=== PATIENT | female | born 1975 ===

== ENCOUNTER 2018-04-03 01:10 | Emergency (ER) | payer SELFPAY ==
--- NOTE | 2018-04-03 01:51 | ED PDOC ---
HPI: Chest Pain Time Seen by Provider: 04/03/18 01:33 Chief Complaint (Nursing): Chest Pain Chief Complaint (Provider): chest pain History Per: Patient History/Exam Limitations: no limitations Onset/Duration Of Symptoms: Hrs (1.5) Current Symptoms Are (Timing): Still Present Quality: Pressure Additional Complaint(s): 42 y/o male (transitioning to female) presents for evaluation of midsternal chest pain x 1.5 hours. Patient states he was trying to fall asleep when pain started; which is worsened by deep breaths. Denies fever, nausea/vomiting, cough, congestion, palpitations, leg pain/swelling, recent travel. +estrogen use. Past Medical History Reviewed: Historical Data, Nursing Documentation, Vital Signs Vital Signs: Last Vital Signs Temp 98.2 F 04/03/18 01:29 Pulse 92 H 04/03/18 01:29 Resp 18 04/03/18 01:29 BP 95/61 L 04/03/18 01:29 Pulse Ox 98 04/03/18 02:11 - Surgical History Surgical History: No Surg Hx - Family History Family History: States: Unknown Family Hx - Social History Current smoker - smoking cessation education provided: No Alcohol: None Drugs: Cannabis - Home Medications Home Medications: Ambulatory Orders Medication Instructions Recorded Amoxicillin 500 mg PO TID #21 tab 03/13/15 Lidocaine 2% Viscous 15 ml MM AC #1 bottle 03/13/15 Cyclobenzaprine [Cyclobenzaprine 10 mg PO TID #20 tab 05/02/16 HCl] Oxycodone HCl/Acetaminophen 1 tab PO Q4 #12 tab 05/02/16 [Percocet 325 mg-5 mg] Ciprofloxacin/Dexamethasone 1 - 2 drop OD BID #1 bottle 12/20/16 [Ciprodex Otic] - Allergies Allergies/Adverse Reactions: Allergies Allergy/AdvReac Type Severity Reaction Status Date / Time No Known Allergies Allergy Verified 04/03/18 01:28 Review of Systems ROS Statement: Except As Marked, All Systems Reviewed And Found Negative Cardiovascular: Positive for: Chest Pain Respiratory: Positive for: Shortness of Breath Physical Exam - Reviewed Nursing Documentation Reviewed: Yes Vital Signs Reviewed: Yes - Physical Exam Appears: Positive for: Well, Non-toxic, No Acute Distress Head Exam: Positive for: ATRAUMATIC, NORMAL INSPECTION, NORMOCEPHALIC Skin: Positive for: Normal Color Eye Exam: Positive for: Normal appearance ENT: Positive for: Normal ENT Inspection Cardiovascular/Chest: Positive for: Regular Rate, Rhythm Respiratory: Positive for: Normal Breath Sounds Gastrointestinal/Abdominal: Positive for: Normal Exam Back: Positive for: Normal Inspection Extremity: Positive for: Normal ROM Neurologic/Psych: Positive for: Alert, Oriented - Laboratory Results Result Diagrams: 04/03/18 02:00 04/03/18 02:00 - ECG ECG: Positive for: Viewed By Me (reviewed by ED attending) ECG Rhythm: Positive for: Sinus Rhythm O2 Sat by Pulse Oximetry: 100 Pulse Ox Interpretation: Normal - Radiology X-Ray: Viewed By Me X-Ray Interpretation: No Acute Disease - Progress ED Course And Treament: labs, ekg, chest xray, IV toradol On re-eval, patient states pain improved Patient educated on findings, discharged with instructions to follow up PMD 2-3 days. Advised NSAIDs Return precautions given. Disposition - Clinical Impression Clinical Impression: Atypical chest pain - Patient ED Disposition Is Patient to be Admitted: No Counseled Patient/Family Regarding: Studies Performed, Diagnosis, Need For Followup - Disposition Disposition: Routine/Home Disposition Time: 03:06 Condition: IMPROVED Instructions: Chest Pain Forms: [employer] (Spanish)
[2018-04-03 02:15] LABS: BASO # 0.1 K/uL (0.0-0.2); BASO % 0.5 % (0.0-2.0); EOS # 0.4 K/uL (0.0-0.7); EOS % 3.7 % (0.0-4.0); LYMPH % 20.4 % (20.0-40.0); MEAN CELL VOLUME 91.2 fl (81.0-99.0); MEAN CORPUSCULAR HEMOGLOBIN 31.5 pg (27.0-31.0); MEAN CORPUSCULAR HGB CONC 34.5 g/dL (33.0-37.0); MEAN PLATELET VOLUME 8.4 fl (7.2-11.7); MONO # 0.8 K/uL (0.0-0.8); MONO % 8.3 % (0.0-10.0); NEUT # 6.5 K/uL (1.8-7.0); NEUT % 67.1 % (50.0-75.0); NRBC % 0.1 % (0.0-0.0); RBC 3.82 Mil/uL (3.80-5.20); RED CELL DISTRIBUTION WIDTH 12.7 % (11.5-14.5); WHITE BLOOD COUNT 9.7 K/uL (4.8-10.8)
[2018-04-03 02:20] LABS: ALB/GLOB RATIO 1.2 (1.0-2.1); ALBUMIN 3.4 g/dL (3.5-5.0); ALT/SGPT 21 U/L (9-52); AST/SGOT 21 U/L (14-36); BLOOD UREA NITROGEN 12 mg/dl (7-17); CALCIUM 8.2 mg/dL (8.4-10.2); GFR AFRICAN-AMERICAN > 60; GFR NON-AFRICAN AMERICAN > 60
[2018-04-03 03:02] VITALS: O2SAT 100
[2018-04-03 03:06] VITALS: BP 95/58; PULSE 81; RESP 17; TEMP 98.1
== END 2018-04-03 03:31 | disposition home or self-care (01) ==
LOC: EDSEX 01:10 → H.ER 01:10
DX: R07.9 Chest pain, unspecified (principal)
CPT/HCPCS: 71046; 80053; 84484; 85025; 85378; 99284; J1885

== ENCOUNTER 2018-04-13 22:30 | Emergency (ER) | payer OTHER ==
[2018-04-13 22:39] VITALS: RESP 16
[2018-04-14] MEDS ORDERED: Famotidine 20mg/50ml Premix IVPB STA (00:43)
[2018-04-14] MEDS ORDERED: Sodium Chloride 0.9% 1,000 ML IV STA (00:43)
[2018-04-14] MEDS ORDERED: Famotidine 20mg/50ml 20 MG/50 ML BAG IVPB ONE (00:52)
[2018-04-14 01:16] LABS: BASO # 0.1 K/uL (0.0-0.2); BASO % 0.5 % (0.0-2.0); EOS # 0.2 K/uL (0.0-0.7); EOS % 1.6 % (0.0-4.0); HEMOGLOBIN 12.9 g/dL (12.0-16.0); LYMPH # 1.1 K/uL (1.0-4.3); LYMPH % 7.4 % (20.0-40.0); MEAN CELL VOLUME 91.8 fl (81.0-99.0); MEAN CORPUSCULAR HEMOGLOBIN 31.6 pg (27.0-31.0); MEAN CORPUSCULAR HGB CONC 34.4 g/dL (33.0-37.0); MEAN PLATELET VOLUME 8.7 fl (7.2-11.7); MONO # 1.1 K/uL (0.0-0.8); MONO % 7.3 % (0.0-10.0); NEUT # 12.5 K/uL (1.8-7.0); NEUT % 83.2 % (50.0-75.0); PLATELET COUNT 255 K/uL (130-400); WHITE BLOOD COUNT 15.1 K/uL (4.8-10.8)
[2018-04-14 01:30] LABS: ALB/GLOB RATIO 1.3 (1.0-2.1); ALBUMIN 4.1 g/dL (3.5-5.0); ALT/SGPT 27 U/L (9-52); AST/SGOT 23 U/L (14-36); BLOOD UREA NITROGEN 8 mg/dl (7-17); CALCIUM 8.9 mg/dL (8.4-10.2); GFR AFRICAN-AMERICAN > 60; GFR NON-AFRICAN AMERICAN > 60; LIPASE 53 U/L (23-300)
--- NOTE | 2018-04-14 01:31 | ED PDOC ---
History of Present Illness History of Present Illness: 42 year old male transitioning to female presents to the emergency department complaining of chills, cough and generalized weakness associated with decreased appetite, nasal congestion, slight difficulty breathing, epigastric pain, and a few episodes of non bloody vomiting and non bloody diarrhea onset yesterday. Denies chest pain. Patient also notes that due to her weakness, she passed out in her home yesterday, but denies head injury. PMD: [facility] HPI: Influenza Time Seen by Provider: 04/14/18 00:21 Chief Complaint: GI Problem Chief Complaint (Provider): GI Problem History Per: Patient Exam Limitations: no limitations Onset/Duration Of Symptoms: Days (x2) Past Medical History Reviewed: Historical Data, Nursing Documentation, Vital Signs Vital Signs: Last Vital Signs Temp 98.6 F 04/13/18 22:36 Pulse 79 04/13/18 22:36 Resp 16 04/13/18 22:36 BP 130/79 04/13/18 22:36 Pulse Ox 95 04/13/18 22:36 - Medical History PMH: Atrial Fibrillation - Surgical History Surgical History: No Surg Hx - Family History Family History: States: Unknown Family Hx - Social History Current smoker - smoking cessation education provided: No Alcohol: None Drugs: Denies - Home Medications Home Medications: Ambulatory Orders Medication Instructions Recorded Amoxicillin 500 mg PO TID #21 tab 03/13/15 Lidocaine 2% Viscous 15 ml MM AC #1 bottle 03/13/15 Cyclobenzaprine [Cyclobenzaprine 10 mg PO TID #20 tab 05/02/16 HCl] Oxycodone HCl/Acetaminophen 1 tab PO Q4 #12 tab 05/02/16 [Percocet 325 mg-5 mg] Ciprofloxacin/Dexamethasone 1 - 2 drop OD BID #1 bottle 12/20/16 [Ciprodex Otic] Ondansetron ODT [Zofran ODT] 4 mg PO Q8 PRN #12 odt 04/14/18 - Allergies Allergies/Adverse Reactions: Allergies Allergy/AdvReac Type Severity Reaction Status Date / Time No Known Allergies Allergy Verified 04/03/18 01:28 Review of Systems ROS Statement: Except As Marked, All Systems Reviewed And Found Negative Constitutional: Positive for: Chills, Weakness (generalized) ENT: Positive for: Nose Congestion Cardiovascular: Negative for: Chest Pain Respiratory: Positive for: Cough, Other (slight difficulty breathing) Gastrointestinal: Positive for: Vomiting (non bloody), Abdominal Pain ( epigastric), Diarrhea (non bloody), Other (decreased appetite) Neurological: Positive for: Other (loss of consciousness, but no head injury) Physical Exam - Reviewed Nursing Documentation Reviewed: Yes Vital Signs Reviewed: Yes - Physical Exam Appears: Positive for: Non-toxic, No Acute Distress Head Exam: Positive for: ATRAUMATIC, NORMOCEPHALIC Skin: Positive for: Normal Color, Warm, Dry Eye Exam: Positive for: Normal appearance ENT: Positive for: Nasal Congestion. Negative for: Pharyngeal Erythema, Tonsillar Exudate, Tonsillar Swelling Neck: Positive for: Normal, Painless ROM, Supple Cardiovascular/Chest: Positive for: Regular Rate, Rhythm. Negative for: Murmur Respiratory: Positive for: Normal Breath Sounds. Negative for: Accessory Muscle Use, Respiratory Distress Gastrointestinal/Abdominal: Positive for: Normal Exam, Soft, Tenderness ( epigastric) Back: Positive for: Normal Inspection. Negative for: L CVA Tenderness, R CVA Tenderness, Vertebral Tenderness Extremity: Positive for: Normal ROM Neurologic/Psych: Positive for: Alert, Oriented (x3). Negative for: Motor/ Sensory Deficits Medical Decision Making Medical Decision Making: Initial Impression: flu like symptoms, abdominal pain with vomiting Ddx: acute gastroenteritis, influenza, pneumonia, pancreatitis, dehydration, and vasovagal syncope Time: 00:42 Initial Plan: --CMP --Lipase --ED urine dipstick --CBC with differential --Chest XR --Sodium chloride 0.9% 1000ml IV --Pepcid 20mg IVPB --Zofran 4mg PO --Throat culture --Influenza A B --Rapid strep Scribe Attestation: Documented by Nilda Haddad, acting as a scribe for Jeo Burrell MD Provider Scribe Attestation: All medical entries made by the Scribe were at my direction and personally dictated by me. I have reviewed the chart and agree that the record accurately reflects my personal performance of the history, physical exam, medical decision making, and the department course for this patient. I have also personally directed, reviewed, and agree with the discharge instructions and disposition. - Laboratory Results Result Diagrams: 04/14/18 01:04 04/14/18 01:04 - ECG O2 Sat by Pulse Oximetry: 95 (RA) Pulse Ox Interpretation: Normal - Progress Re-evaluation Time: 03:38 Condition: Re-examined, Improved Disposition - Clinical Impression Clinical Impression: Flu-like symptoms, Vomiting and diarrhea, Abdominal pain - Patient ED Disposition Is Patient to be Admitted: No Doctor Will See Patient In The: Office Counseled Patient/Family Regarding: Studies Performed, Diagnosis, Need For Followup - Disposition Referrals: [facility] [Outside] Disposition: Routine/Home Disposition Time: 03:39 Condition: GOOD Additional Instructions: Return for worsening. Follow up with your PCP in 2-3 days. Prescriptions: Ondansetron ODT [Zofran ODT] 4 mg PO Q8 PRN #12 odt PRN Reason: Nausea/Vomiting Instructions: Viral Gastroenteritis, Adult (DC), Viral Upper Respiratory Infection, Adult (DC)
[2018-04-14 02:14] LABS: LYMPHOCYTE 9 % (20-50); MONOCYTE 5 % (0-10); NEUTROPHIL 86 % (42-75); PLATELET ESTIMATE NORMAL (NORMAL); TOTAL CELLS COUNTED 100
[2018-04-14 06:12] VITALS: BP 110/61; PULSE 83; TEMP 97.9; O2SAT 98
--- NOTE | 2018-04-14 09:59 | RAD ---
HISTORY: cough cogestion dyspnea COMPARISON: Chest radiographs 04/03/2018. TECHNIQUE: Chest PA and lateral FINDINGS: LUNGS: No active pulmonary disease. PLEURA: No significant pleural effusion identified. No pneumothorax apparent. CARDIOVASCULAR: Normal. OSSEOUS STRUCTURES: No significant abnormalities. VISUALIZED UPPER ABDOMEN: Normal. OTHER FINDINGS: None. IMPRESSION: No interval acute cardiopulmonary disease appreciated.
== END 2018-04-14 06:11 | disposition home or self-care (01) ==
LOC: EDSEX → H.ER 22:30
DX: J11.1 Influenza due to unidentified influenza virus with other respiratory manifestations (principal); R11.10 Vomiting, unspecified; R19.7 Diarrhea, unspecified; R10.9 Unspecified abdominal pain
CPT/HCPCS: 71046; 80053; 83690; 85025; 87070; 87430; 87804; 96361; 96374; 99283; J7030

== ENCOUNTER 2018-05-19 07:29 | Emergency (ER) | payer MEDICAID, OTHER ==
[2018-05-19 07:38] VITALS: BMI 26.5
[2018-05-19] MEDS ORDERED: Sodium Chloride 0.9% 1,000 ML IV STA (07:52)
--- NOTE | 2018-05-19 08:01 | ED PDOC ---
HPI: Back Time Seen by Provider: 05/19/18 07:36 Chief Complaint (Nursing): Back Pain Chief Complaint (Provider): Back Pain History Per: Patient History/Exam Limitations: no limitations Onset/Duration Of Symptoms: Hrs Current Symptoms Are (Timing): Still Present Quality Of Discomfort: "Pain" Additional Complaint(s): 42 y/o female with no PMHx presents to the ED complaining of constant right back pain associated with nausea, onset this morning. Patient states she was asleep last night when pain woke her up. Patient reports she has had similar pain before but it had resolved on its own. Patient states that they are currently transitioning from male to female and is on estrogen and spironolactone therapy. Denies vomiting, fever, constipation, diarrhea, dysuria , and hematuria. PMD: None Provided Past Medical History Reviewed: Historical Data, Nursing Documentation, Vital Signs Vital Signs: Last Vital Signs Temp 97.4 F L 05/19/18 07:37 Pulse 76 05/19/18 07:37 Resp BP 115/74 05/19/18 07:37 Pulse Ox 98 05/19/18 07:37 - Medical History PMH: Atrial Fibrillation - Surgical History Surgical History: No Surg Hx - Family History Family History: States: Unknown Family Hx - Home Medications Home Medications: Ambulatory Orders Medication Instructions Recorded Amoxicillin 500 mg PO TID #21 tab 03/13/15 Lidocaine 2% Viscous 15 ml MM AC #1 bottle 03/13/15 Cyclobenzaprine [Cyclobenzaprine 10 mg PO TID #20 tab 05/02/16 HCl] Oxycodone HCl/Acetaminophen 1 tab PO Q4 #12 tab 05/02/16 [Percocet 325 mg-5 mg] Ciprofloxacin/Dexamethasone 1 - 2 drop OD BID #1 bottle 12/20/16 [Ciprodex Otic] Ondansetron ODT [Zofran ODT] 4 mg PO Q8 PRN #12 odt 04/14/18 Naproxen [Naprosyn] 500 mg PO BID PRN #15 tablet 05/19/18 Ondansetron [Zofran Odt] 4 mg PO Q8H PRN #15 odt 05/19/18 - Allergies Allergies/Adverse Reactions: Allergies Allergy/AdvReac Type Severity Reaction Status Date / Time No Known Allergies Allergy Verified 04/03/18 01:28 Review of Systems ROS Statement: Except As Marked, All Systems Reviewed And Found Negative Constitutional: Negative for: Fever Gastrointestinal: Positive for: Nausea. Negative for: Vomiting, Diarrhea, Constipation Musculoskeletal: Positive for: Back Pain (right) Physical Exam - Reviewed Nursing Documentation Reviewed: Yes Vital Signs Reviewed: Yes - Physical Exam Appears: Positive for: No Acute Distress Head Exam: Positive for: ATRAUMATIC, NORMOCEPHALIC Skin: Positive for: Normal Color, Warm, Dry Eye Exam: Positive for: Normal appearance, EOMI, PERRL Neck: Positive for: Normal, Painless ROM Cardiovascular/Chest: Positive for: Regular Rate, Rhythm. Negative for: Murmur Respiratory: Positive for: Normal Breath Sounds. Negative for: Respiratory Distress Gastrointestinal/Abdominal: Positive for: Normal Exam, Tenderness (mild right upper quadrant tenderness). Negative for: Guarding, Rebound Back: Positive for: Normal Inspection, R CVA Tenderness. Negative for: L CVA Tenderness, Vertebral Tenderness Extremity: Positive for: Normal ROM. Negative for: Deformity Neurologic/Psych: Positive for: Alert, Oriented (x3). Negative for: Motor/ Sensory Deficits - Laboratory Results Result Diagrams: 05/19/18 08:43 05/19/18 08:43 - ECG O2 Sat by Pulse Oximetry: 98 (RA) Pulse Ox Interpretation: Normal Medical Decision Making Medical Decision Making: Time: 075 Impression: Flank Pain Plan: -- EKG -- CMP -- ED Urine Dipstick -- CBC with differentials -- PTT -- Prothrombin Time -- CXR Two Views -- Morphine 2 mg IV -- Sodium Chloride IV 1000 mls/hr -- Zofran Inj 4 mg PO -- Urinalysis Time: 924 CXR RESULTS FINDINGS: LUNGS: No active pulmonary disease. PLEURA: No significant pleural effusion identified. No pneumothorax apparent. CARDIOVASCULAR: Normal. OSSEOUS STRUCTURES: No significant abnormalities. VISUALIZED UPPER ABDOMEN: Normal. OTHER FINDINGS: None. IMPRESSION: No active disease. Time: 1021 CT ABD/PELVIS RESULTS FINDINGS: LOWER THORAX: Lung bases clear. Heart size normal. Small hiatal hernia. Bilateral changes of gynecomastia. LIVER: Liver is mildly enlarged measuring nearly 20 cm in CC dimension. Small approximately 10.5 mm elliptical shaped fluid collects density lesion in the posterior aspect right lobe liver consistent with a small hepatic cyst. There is another small 2 mm focus low attenuation inferior aspect right lobe liver that is too small to characterize though this may also represent a cyst. Follow- up of CT scan at interval could be performed to assess stability No other hepatic abnormalities are identified. GALLBLADDER AND BILE DUCTS: Cholelithiasis. . PANCREAS: Pancreas is unremarkable without mass collection or calcification. SPLEEN: Unremarkable. No splenomegaly. ADRENALS: Unremarkable. KIDNEYS AND URETERS: Kidneys demonstrate relatively symmetric size. No evidence of nephrolithiasis or hydronephrosis. BLADDER: Urinary bladder incompletely distended which presumably accounts for thick- walled appearance. Muscular hypertrophy may contribute. Correlation with urinalysis recommended to exclude cystitis. REPRODUCTIVE: Unremarkable. APPENDIX: Normal appendix best seen on coronal sequence 42- 57. BOWEL: Unremarkable. No obstruction. There is a moderate amount of stool seen within the large bowel consistent with mild fecal retention No gross mural thickening. PERITONEUM: Unremarkable. No fluid collection. No free air. Small fat containing umbilical hernia. Small bilateral fat containing inguinal hernias. LYMPH NODES: There are scattered small mesenteric lymph nodes which are nonspecific ; rule out mesenteric adenitis. In the VASCULATURE: Unremarkable. No aortic aneurysm. BONES: No fracture or destructive lesion. OTHER FINDINGS: None. IMPRESSION: Cholelithiasis. There are scattered small mesenteric lymph nodes which are nonspecific ; rule out mesenteric adenitis. Findings suggest on fecal retention/ constipation. No evidence of nephrolithiasis. No evidence of acute appendicitis. Mild hepatomegaly. Small cyst posterior superior aspect right lobe liver. . Questionable additional tiny 2 mm cyst inferior aspect right lobe liver Scribe Attestation: Documented by Mira Palacios acting as a scribe for Dr. Julia Tariq MD. Provider Scribe Attestation: All medical record entries made by the Scribe were at my direction and personally dictated by me. I have reviewed the chart and agree that the record accurately reflects my personal performance of the history, physical exam, medical decision making, and the department course for this patient. I have also personally directed, reviewed, and agree with the discharge instructions and disposition. Disposition - Clinical Impression Clinical Impression: Cholelithiasis, Mesenteric adenitis - Disposition Referrals: [facility] [Outside] Disposition: Routine/Home Disposition Time: 11:30 Condition: STABLE Prescriptions: Naproxen [Naprosyn] 500 mg PO BID PRN #15 tablet PRN Reason: Pain, Moderate (4-7) Ondansetron [Zofran Odt] 4 mg PO Q8H PRN #15 odt PRN Reason: Nausea/Vomiting Instructions: Gallstones, Mesenteric Lymphadenitis (DC) Forms: [facility] (Guyanese), [facility] ED School/Work Excuse
[2018-05-19 08:47] LABS: BASO # 0.1 K/uL (0.0-0.2); BASO % 0.5 % (0.0-2.0); EOS # 0.2 K/uL (0.0-0.7); EOS % 1.8 % (0.0-4.0); LYMPH # 1.2 K/uL (1.0-4.3); LYMPH % 9.7 % (20.0-40.0); MEAN CELL VOLUME 91.3 fl (80.0-94.0); MEAN CORPUSCULAR HEMOGLOBIN 31.1 pg (27.0-31.0); MEAN CORPUSCULAR HGB CONC 34.1 g/dL (33.0-37.0); MEAN PLATELET VOLUME 8.9 fl (7.2-11.7); MONO # 0.8 K/uL (0.0-0.8); MONO % 6.2 % (0.0-10.0); NEUT # 10.5 K/uL (1.8-7.0); NEUT % 81.8 % (50.0-75.0); PLATELET COUNT 251 K/uL (130-400); RBC 4.18 Mil/uL (4.40-5.90); RED CELL DISTRIBUTION WIDTH 12.5 % (11.5-14.5); WHITE BLOOD COUNT 12.8 K/uL (4.8-10.8)
[2018-05-19 08:58] LABS: PARTIAL THROMBOPLASTIN TIME 31.9 Seconds (25.6-37.1); PROTHROMBIN TIME 11.6 Seconds (9.8-13.1)
[2018-05-19 09:00] LABS: ALB/GLOB RATIO 1.4 (1.0-2.1); ALBUMIN 4.2 g/dL (3.5-5.0); ALT/SGPT 22 U/L (21-72); AST/SGOT 19 U/L (17-59); BLOOD UREA NITROGEN 13 mg/dl (9-20); CALCIUM 8.9 mg/dL (8.4-10.2); GFR NON-AFRICAN AMERICAN > 60
[2018-05-19 09:29] LABS: SQUAMOUS EPITHIAL 3 /hpf (0-5); URINE BILIRUBIN NEGATIVE (NEGATIVE); URINE BLOOD SMALL (NEGATIVE); URINE CLARITY SLIGHTY-CLOUDY (Clear); URINE COLOR YELLOW (YELLOW); URINE GLUCOSE (UA) NEG (Normal); URINE LEUKOCYTE ESTERASE NEG Leu/uL (Negative); URINE PROTEIN NEGATIVE (NEGATIVE); URINE UROBILINOGEN 0.2-1.0 mg/dL (0.2-1.0)
[2018-05-19 09:35] LABS: BASOPHIL 1 % (0-2); EOSINOPHIL 1 % (0-7); LYMPHOCYTE 14 % (20-50); MONOCYTE 8 % (0-10); NEUTROPHIL 76 % (42-75); PLATELET ESTIMATE NORMAL (NORMAL); TOTAL CELLS COUNTED 100
[2018-05-19 09:36] LABS: ANISOCYTOSIS SLIGHT; LARGE PLATELETS PRESENT; OVALOCYTES MODERATE
--- NOTE | 2018-05-19 10:04 | RAD ---
Date of service: 05/19/2018 HISTORY: R flank pain COMPARISON: Comparison chest 04/14/2018 TECHNIQUE: Chest PA and lateral FINDINGS: LUNGS: No active pulmonary disease. PLEURA: No significant pleural effusion identified. No pneumothorax apparent. CARDIOVASCULAR: Normal. OSSEOUS STRUCTURES: No significant abnormalities. VISUALIZED UPPER ABDOMEN: Normal. OTHER FINDINGS: None. IMPRESSION: No active disease.
--- NOTE | 2018-05-19 10:23 | CT ---
Date of service: 05/19/2018 PROCEDURE: CT abdomen pelvis HISTORY: R flank pain COMPARISON: None. TECHNIQUE: Contiguous axial images of the abdomen and pelvis. . Given. Coronal and Sagittal reformats generated. This CT exam was performed using one or more of the following dose reduction techniques: Automated exposure control, adjustment of the mA and/or kV according to patient size, and/or use of iterative reconstruction technique. Radiation dose: Total exam DLP = 815.29 mGy-cm. FINDINGS: LOWER THORAX: Lung bases clear. Heart size normal. Small hiatal hernia. Bilateral changes of gynecomastia. LIVER: Liver is mildly enlarged measuring nearly 20 cm in CC dimension. Small approximately 10.5 mm elliptical shaped fluid collects density lesion in the posterior aspect right lobe liver consistent with a small hepatic cyst. There is another small 2 mm focus low attenuation inferior aspect right lobe liver that is too small to characterize though this may also represent a cyst. Follow-up of CT scan at interval could be performed to assess stability No other hepatic abnormalities are identified. GALLBLADDER AND BILE DUCTS: Cholelithiasis. . PANCREAS: Pancreas is unremarkable without mass collection or calcification. SPLEEN: Unremarkable. No splenomegaly. ADRENALS: Unremarkable. KIDNEYS AND URETERS: Kidneys demonstrate relatively symmetric size. No evidence of nephrolithiasis or hydronephrosis. BLADDER: Urinary bladder incompletely distended which presumably accounts for thick-walled appearance. Muscular hypertrophy may contribute. Correlation with urinalysis recommended to exclude cystitis. REPRODUCTIVE: Unremarkable. APPENDIX: Normal appendix best seen on coronal sequence 42- 57. BOWEL: Unremarkable. No obstruction. There is a moderate amount of stool seen within the large bowel consistent with mild fecal retention No gross mural thickening. PERITONEUM: Unremarkable. No fluid collection. No free air. Small fat containing umbilical hernia. Small bilateral fat containing inguinal hernias. LYMPH NODES: There are scattered small mesenteric lymph nodes which are nonspecific ; rule out mesenteric adenitis. In the VASCULATURE: Unremarkable. No aortic aneurysm. BONES: No fracture or destructive lesion. OTHER FINDINGS: None. IMPRESSION: Cholelithiasis. There are scattered small mesenteric lymph nodes which are nonspecific ; rule out mesenteric adenitis. Findings suggest on fecal retention/ constipation. No evidence of nephrolithiasis. No evidence of acute appendicitis. Mild hepatomegaly. Small cyst posterior superior aspect right lobe liver. . Questionable additional tiny 2 mm cyst inferior aspect right lobe liver
[2018-05-19 13:25] VITALS: BP 116/71; PULSE 74; RESP 18; TEMP 98.2
[2018-05-20 10:59] VITALS: O2SAT 98
--- NOTE | 2018-05-21 13:51 | CARD ---
APPROVED REPORT Date of service: 05/19/2018 EKG Measurement Heart [id number] <Conclusion> Normal sinus rhythm Left axis deviation Abnormal ECG
== END 2018-05-19 11:48 | disposition home or self-care (01) ==
LOC: EDSEX → H.ER 07:29 → SUPCPDRO 07:29 → H.ER 11:48
DX: K80.20 Calculus of gallbladder without cholecystitis without obstruction (principal); I88.0 Nonspecific mesenteric lymphadenitis; I48.91 Unspecified atrial fibrillation
CPT/HCPCS: 71046; 74176; 80053; 81003; 85025; 85610; 85730; 93005; 96361; 96374; 99284; J2270; J7030

== ENCOUNTER 2018-05-31 03:23 | Emergency (ER) | payer MEDICAID, OTHER ==
[2018-05-31 03:23] VITALS: BMI 26.5
[2018-05-31 03:41] VITALS: O2SAT 100
[2018-05-31] MEDS ORDERED: Sodium Chloride 0.9% 1,000 ML IV STA (03:44)
--- NOTE | 2018-05-31 03:50 | ED PDOC ---
HPI: Abdomen Time Seen by Provider: 05/31/18 03:31 Chief Complaint (Nursing): Abdominal Pain Chief Complaint (Provider): Abdominal Pain History Per: Patient History/Exam Limitations: no limitations Onset/Duration Of Symptoms: Hrs (x1) Current Symptoms Are (Timing): Still Present Location Of Pain/Discomfort: RUQ Quality Of Discomfort: Sharp Associated Symptoms: Nausea Additional Complaint(s): 42 year old male with a history of gallstones diagnosed 12 days ago presents to the ED with abdominal pain onset one hour associated nausea. Patient reports he has sharp, acute right back and abdominal pain consistent with gall stone pain he had 12 days ago. He states that the pain is an 9 out of 10 in severity. Patient is currently taking medications for gender reassignment. He denies vomiting or any other medical complaints. PMD: [facility] Past Medical History Reviewed: Historical Data, Nursing Documentation, Vital Signs Vital Signs: Last Vital Signs Temp 98.6 F 05/31/18 08:59 Pulse 65 05/31/18 08:59 Resp 16 05/31/18 08:59 BP 109/70 05/31/18 08:59 Pulse Ox 100 05/31/18 09:56 - Medical History PMH: Atrial Fibrillation Other PMH: Gall stones - Family History Family History: States: Unknown Family Hx - Social History Current smoker - smoking cessation education provided: No Ex-Smoker (has not smoked in the last 12 months): No Alcohol: None Drugs: Denies - Home Medications Home Medications: Ambulatory Orders Medication Instructions Recorded Amoxicillin 500 mg PO TID #21 tab 03/13/15 Lidocaine 2% Viscous 15 ml MM AC #1 bottle 03/13/15 Cyclobenzaprine [Cyclobenzaprine 10 mg PO TID #20 tab 05/02/16 HCl] Oxycodone HCl/Acetaminophen 1 tab PO Q4 #12 tab 05/02/16 [Percocet 325 mg-5 mg] Ciprofloxacin/Dexamethasone 1 - 2 drop OD BID #1 bottle 12/20/16 [Ciprodex Otic] Ondansetron ODT [Zofran ODT] 4 mg PO Q8 PRN #12 odt 04/14/18 Naproxen [Naprosyn] 500 mg PO BID PRN #15 tablet 05/19/18 Ondansetron [Zofran Odt] 4 mg PO Q8H PRN #15 odt 05/19/18 Naproxen [Naprosyn] 500 mg PO BID PRN #15 tablet 05/31/18 - Allergies Allergies/Adverse Reactions: Allergies Allergy/AdvReac Type Severity Reaction Status Date / Time No Known Allergies Allergy Verified 05/31/18 03:38 Review of Systems ROS Statement: Except As Marked, All Systems Reviewed And Found Negative Gastrointestinal: Positive for: Abdominal Pain Musculoskeletal: Positive for: Back Pain Physical Exam - Reviewed Nursing Documentation Reviewed: Yes Vital Signs Reviewed: Yes - Physical Exam Appears: Positive for: Uncomfortable Head Exam: Positive for: ATRAUMATIC, NORMAL INSPECTION, NORMOCEPHALIC Skin: Positive for: Normal Color, Warm, Dry Eye Exam: Positive for: Normal appearance, EOMI, PERRL, Other (left eyelid chalazion noted) Neck: Positive for: Normal, Painless ROM Cardiovascular/Chest: Positive for: Regular Rate, Rhythm. Negative for: Murmur Respiratory: Positive for: Normal Breath Sounds. Negative for: Respiratory Distress Gastrointestinal/Abdominal: Positive for: Tenderness (RUQ tenderness), Other ( positive murphys sign ) Extremity: Positive for: Normal ROM (upper and lower) Neurologic/Psych: Positive for: Alert, Oriented (x3) - Laboratory Results Result Diagrams: 05/31/18 04:15 05/31/18 04:15 - ECG O2 Sat by Pulse Oximetry: 100 (RA) Pulse Ox Interpretation: Normal Medical Decision Making Medical Decision Making: Time: 03:43 Initial Impression: 42 year old male with Initial Plan: --labs --IV Pepcid, Toradol and Zofran Time: 5:42 --Labs reviewed and demonstrated no clinically significant results. Patient reports persistent pain, US ordered. Time: 7:00 --Patient signed out to Dr. Tariq by this provider, pending US. Scribe Attestation: Documented by Tiffanie Laboy, acting as a scribe for Trevor Iyer MD Provider Scribe Attestation: All medical record entries made by the Scribe were at my direction and personally dictated by me. I have reviewed the chart and agree that the record accurately reflects my personal performance of the history, physical exam, medical decision making, and the department course for this patient. I have also personally directed, reviewed, and agree with the discharge instructions and disposition. Disposition - Clinical Impression Clinical Impression: Cholelithiasis - Patient ED Disposition Is Patient to be Admitted: Transfer of Care - Disposition Referrals: Chiara Jeffers MD [Primary Care Provider] - Pascual Zaragoza MD [Staff Provider] - Disposition Time: 07:00 Condition: FAIR Prescriptions: Naproxen [Naprosyn] 500 mg PO BID PRN #15 tablet PRN Reason: Pain, Moderate (4-7) Instructions: Gallstones Forms: [employer] (Faroese), [facility] ED School/Work Excuse Patient Signed Over To: Julia Tariq
[2018-05-31 04:23] LABS: BASO # 0.1 K/uL (0.0-0.2); BASO % 0.7 % (0.0-2.0); EOS # 0.3 K/uL (0.0-0.7); EOS % 3.2 % (0.0-4.0); HEMOGLOBIN 13.6 g/dL (12.0-18.0); LYMPH # 2.2 K/uL (1.0-4.3); LYMPH % 25.4 % (20.0-40.0); MEAN CELL VOLUME 89.9 fl (80.0-94.0); MEAN CORPUSCULAR HGB CONC 35.6 g/dL (33.0-37.0); MEAN PLATELET VOLUME 8.6 fl (7.2-11.7); MONO % 11.5 % (0.0-10.0); NEUT # 5.2 K/uL (1.8-7.0); NEUT % 59.2 % (50.0-75.0); NRBC % 0.1 % (0.0-0.0); RBC 4.26 Mil/uL (4.40-5.90); RED CELL DISTRIBUTION WIDTH 12.8 % (11.5-14.5); WHITE BLOOD COUNT 8.8 K/uL (4.8-10.8)
[2018-05-31 04:36] LABS: ALB/GLOB RATIO 1.4 (1.0-2.1); ALBUMIN 4.3 g/dL (3.5-5.0); ALT/SGPT 24 U/L (21-72); AST/SGOT 21 U/L (17-59); BLOOD UREA NITROGEN 14 mg/dl (9-20); CALCIUM 8.9 mg/dL (8.4-10.2); GFR NON-AFRICAN AMERICAN > 60; LIPASE 93 U/L (23-300)
[2018-05-31] MEDS ORDERED: Morphine 4 MG/ML VIAL IVP ONE (05:36)
[2018-05-31] MEDS ORDERED: Morphine 4 MG/ML VIAL ONE (05:37)
--- NOTE | 2018-05-31 07:14 | ED PDOC ---
- Laboratory Results Result Diagrams: 05/31/18 04:15 05/31/18 04:15 - ECG O2 Sat by Pulse Oximetry: 100 (RA) Pulse Ox Interpretation: Normal Medical Decision Making Medical Decision Making: Time: 699 -- Patient endorsed to me by Dr. Iyer, pending US. Time: 924 US RESULTS FINDINGS: LIVER: Measures 16.0 cm in length. Normal echogenicity of the liver parenchyma. The lucent CT finding at the right lobe liver seen in prior CT dated 05/19/2018 ( Noncontrast) is not visible in current ultrasound examination. GALLBLADDER: Gallbladder is distended with limited cholelithiasis identified. Gallbladder wall is upper limits of normal thickness but with no pericholecystic fluid collection. Clinically correlate for cholecystitis nevertheless. No reported sonographic Mayer sign either. COMMON BILE DUCT: Measures 6.1 mm. No stones. No dilatation. PANCREAS: The tail of the pancreas is obscured by overlying bowel gas with remainder unremarkable. RIGHT KIDNEY: Measures 11.0 cm in length. Normal echogenicity. No calculus, mass, or hydronephrosis. AORTA: No aneurysmal dilatation. IVC: Unremarkable. OTHER FINDINGS: None . IMPRESSION: 1. A distended gallbladder is identified with limited cholelithiasis and upper limits normal thickness of the wall. No additional sign to suggest cholecystitis a clinical correlation is advised. No sonographic Mayer sign reported. Normal CBD caliber. 2. Partial imaging of the pancreas. Upon discharge, patient c/o "chalazion" on L eyelid X days. Advised warm compresses and follow-up with Ophtho. Scribe Attestation: Documented by Mira Palacios acting as a scribe for Dr. Julia Tariq MD. Provider Scribe Attestation: All medical record entries made by the Scribe were at my direction and personally dictated by me. I have reviewed the chart and agree that the record accurately reflects my personal performance of the history, physical exam, medical decision making, and the department course for this patient. I have also personally directed, reviewed, and agree with the discharge instructions and disposition. Disposition - Clinical Impression Clinical Impression: Cholelithiasis - POA Present On Arrival: None - Disposition Referrals: Chiara Jeffers MD [Primary Care Provider] - Pascual Zaragoza MD [Staff Provider] - Disposition: Routine/Home Disposition Time: 09:41 Condition: FAIR Prescriptions: Naproxen [Naprosyn] 500 mg PO BID PRN #15 tablet PRN Reason: Pain, Moderate (4-7) Instructions: Gallstones Forms: [employer] (Vietnamese), [facility] ED School/Work Excuse
[2018-05-31 09:01] VITALS: BP 109/70; PULSE 65; RESP 16; TEMP 98.6
--- NOTE | 2018-05-31 09:26 | US ---
Date of service: 05/31/2018 HISTORY: RUQ pain COMPARISON: None. TECHNIQUE: Sonographic evaluation of the right upper quadrant of the abdomen. FINDINGS: LIVER: Measures 16.0 cm in length. Normal echogenicity of the liver parenchyma. The lucent CT finding at the right lobe liver seen in prior CT dated 05/19/2018 (Noncontrast) is not visible in current ultrasound examination. GALLBLADDER: Gallbladder is distended with limited cholelithiasis identified. Gallbladder wall is upper limits of normal thickness but with no pericholecystic fluid collection. Clinically correlate for cholecystitis nevertheless. No reported sonographic Mayer sign either. COMMON BILE DUCT: Measures 6.1 mm. No stones. No dilatation. PANCREAS: The tail of the pancreas is obscured by overlying bowel gas with remainder unremarkable. RIGHT KIDNEY: Measures 11.0 cm in length. Normal echogenicity. No calculus, mass, or hydronephrosis. AORTA: No aneurysmal dilatation. IVC: Unremarkable. OTHER FINDINGS: None . IMPRESSION: 1. A distended gallbladder is identified with limited cholelithiasis and upper limits normal thickness of the wall. No additional sign to suggest cholecystitis a clinical correlation is advised. No sonographic Mayer sign reported. Normal CBD caliber. 2. Partial imaging of the pancreas.
== END 2018-05-31 09:50 | disposition home or self-care (01) ==
LOC: H.ER 03:23 → EDSEX 03:23 → H.ER 09:50
DX: K80.20 Calculus of gallbladder without cholecystitis without obstruction (principal)
CPT/HCPCS: 76705; 80053; 83690; 85025; 96374; 99284; J1885; J2270; J2405; J7030

== ENCOUNTER 2018-08-12 06:12 | Emergency (ER) | payer OTHER, SELFPAY ==
[2018-08-12 06:12] VITALS: BMI 26.5
[2018-08-12 06:55] VITALS: RESP 18; O2SAT 98
[2018-08-12] MEDS ORDERED: Sodium Chloride 0.9% 1,000 ML IV STA (07:16)
--- NOTE | 2018-08-12 07:20 | ED PDOC ---
HPI: Abdomen Time Seen by Provider: 08/12/18 07:10 Chief Complaint (Nursing): Abdominal Pain Chief Complaint (Provider): Abdominal Pain History Per: Patient History/Exam Limitations: no limitations Onset/Duration Of Symptoms: Days (2) Location Of Pain/Discomfort: RUQ Associated Symptoms: Back Pain (Right upper). denies: Fever, Nausea, Vomiting, Diarrhea, Urinary Symptoms Additional Complaint(s): 43 years old female with history of gallbladder disease presents to ED for evaluation of right upper quadrant abdominal pain and right sided upper back pain onset 2 days ago. Patient denies any nausea, vomiting, diarrhea, fever or urinary symptoms. PMD: non provided Past Medical History Reviewed: Historical Data, Nursing Documentation, Vital Signs Vital Signs: Last Vital Signs Temp 98.2 F 08/12/18 06:52 Pulse 83 08/12/18 06:52 Resp 18 08/12/18 06:52 BP 118/66 08/12/18 06:52 Pulse Ox 98 08/12/18 06:52 - Medical History PMH: Atrial Fibrillation, Gall Bladder Disease Denies: Kidney Stones, Chronic Kidney Disease - Surgical History Surgical History: No Surg Hx - Family History Family History: States: Unknown Family Hx - Social History Current smoker - smoking cessation education provided: No Alcohol: None Drugs: Denies - Immunization History Hx Tetanus Toxoid Vaccination: No Hx Influenza Vaccination: No Hx Pneumococcal Vaccination: No - Home Medications Home Medications: Ambulatory Orders Medication Instructions Recorded Amoxicillin 500 mg PO TID #21 tab 03/13/15 Lidocaine 2% Viscous 15 ml MM AC #1 bottle 03/13/15 Cyclobenzaprine [Cyclobenzaprine 10 mg PO TID #20 tab 05/02/16 HCl] Oxycodone HCl/Acetaminophen 1 tab PO Q4 #12 tab 05/02/16 [Percocet 325 mg-5 mg] Ciprofloxacin/Dexamethasone 1 - 2 drop OD BID #1 bottle 12/20/16 [Ciprodex Otic] Ondansetron ODT [Zofran ODT] 4 mg PO Q8 PRN #12 odt 04/14/18 Naproxen [Naprosyn] 500 mg PO BID PRN #15 tablet 05/19/18 Ondansetron [Zofran Odt] 4 mg PO Q8H PRN #15 odt 05/19/18 Naproxen [Naprosyn] 500 mg PO BID PRN #15 tablet 05/31/18 Famotidine [Pepcid] 20 mg PO Q12 #20 tab 08/12/18 - Allergies Allergies/Adverse Reactions: Allergies Allergy/AdvReac Type Severity Reaction Status Date / Time No Known Allergies Allergy Verified 05/31/18 03:38 Review of Systems ROS Statement: Except As Marked, All Systems Reviewed And Found Negative Constitutional: Negative for: Fever Gastrointestinal: Positive for: Abdominal Pain (RUQ). Negative for: Nausea, Vomiting, Diarrhea Genitourinary Female: Negative for: Dysuria, Hematuria Musculoskeletal: Positive for: Back Pain (Right upper) Physical Exam - Reviewed Nursing Documentation Reviewed: Yes Vital Signs Reviewed: Yes - Physical Exam Appears: Positive for: Non-toxic, No Acute Distress Head Exam: Positive for: ATRAUMATIC, NORMOCEPHALIC Gastrointestinal/Abdominal: Positive for: Normal Exam, Soft. Negative for: Tenderness Back: Positive for: Normal Inspection. Negative for: L CVA Tenderness, R CVA Tenderness Extremity: Positive for: Normal ROM. Negative for: Pedal Edema, Swelling Neurologic/Psych: Positive for: Alert, Oriented (x3) - Laboratory Results Result Diagrams: 08/12/18 08:00 08/12/18 08:00 - ECG O2 Sat by Pulse Oximetry: 98 (RA) Pulse Ox Interpretation: Normal Medical Decision Making Medical Decision Making: Time: 714 Initial Plan: --CMP --Urine dipstick --NaCl 1,000 ml IV --Toradol 30 mg IVP --Abdomen US Scribe Attestation: Documented by Ellyn Polo, acting as a scribe for Dayton Garcia MD. US and blood work discussed with pt. Does not wish surgery today. Elevated WBC but US does not appear to show acute cholecystitis. Will refeer to outpt surgical follow up with instructions to return to ED immediately if they develop fever or increased pain. Provider Scribe Attestation: All medical record entries made by the Scribe were at my direction and personall y dictated by me. I have reviewed the chart and agree that the record accurately reflects my personal performance of the history, physical exam, medical decision making, and the department course for this patient. I have also personally directed, reviewed, and agree with the discharge instructions and disposition. Disposition - Clinical Impression Clinical Impression: Gallstones - Patient ED Disposition Is Patient to be Admitted: No Counseled Patient/Family Regarding: Studies Performed, Diagnosis, Need For Followup, Rx Given - Disposition Referrals: Lee Segura MD [Staff Provider] - Disposition: Routine/Home Disposition Time: 11:03 Condition: FAIR Prescriptions: Famotidine [Pepcid] 20 mg PO Q12 #20 tab Instructions: Gallstones Forms: [employer] (Greenlandic)
[2018-08-12 08:39] LABS: BASO # 0.1 K/uL (0.0-0.2); BASO % 0.5 % (0.0-2.0); EOS # 0.3 K/uL (0.0-0.7); EOS % 2.1 % (0.0-4.0); HEMOGLOBIN 13.2 g/dL (12.0-16.0); LYMPH # 1.6 K/uL (1.0-4.3); LYMPH % 11.6 % (20.0-40.0); MEAN CELL VOLUME 92.6 fl (81.0-99.0); MEAN CORPUSCULAR HEMOGLOBIN 31.2 pg (27.0-31.0); MEAN CORPUSCULAR HGB CONC 33.7 g/dL (33.0-37.0); MEAN PLATELET VOLUME 9.6 fl (7.2-11.7); MONO # 0.8 K/uL (0.0-0.8); MONO % 5.7 % (0.0-10.0); NEUT # 11.4 K/uL (1.8-7.0); NEUT % 80.1 % (50.0-75.0); RBC 4.23 Mil/uL (3.80-5.20); RED CELL DISTRIBUTION WIDTH 12.8 % (11.5-14.5); WHITE BLOOD COUNT 14.2 K/uL (4.8-10.8)
[2018-08-12 08:52] LABS: BLOOD UREA NITROGEN 15 mg/dl (7-17); CALCIUM 9.3 mg/dL (8.4-10.2); GFR NON-AFRICAN AMERICAN > 60
[2018-08-12 08:59] LABS: ALB/GLOB RATIO 1.3 (1.0-2.1); ALBUMIN 4.3 g/dL (3.5-5.0); ALT/SGPT 12 U/L (9-52); AST/SGOT 33 U/L (14-36)
--- NOTE | 2018-08-12 10:38 | US ---
Date of service: 08/12/2018 HISTORY: RUQ pain COMPARISON: 05/31/2018 TECHNIQUE: Real-time transabdominal ultrasound examination of the right upper quadrant was performed.. FINDINGS: LIVER: Measures 18.5 cm in length. Normal echogenicity of the liver parenchyma. No mass. No intrahepatic bile duct dilatation. GALLBLADDER: There is evidence of mobile gallstones within the gallbladder. Gallbladder wall measures up to 4 millimeters. There may be some subtle thickening of the gallbladder wall. No pericholecystic fluid was noted. No sonographic Mayer's sign was elicited by the technologist. Size and number the gallstones is increased from prior ultrasound examination dated 05/31/2018. COMMON BILE DUCT: Measures 4-5 mm. No stones. No dilatation. PANCREAS: Unremarkable as visualized. No mass. No ductal dilatation. RIGHT KIDNEY: Measures 10.8 cm in length. Normal echogenicity. No calculus, mass, or hydronephrosis. AORTA: No aneurysmal dilatation. IVC: Unremarkable. OTHER FINDINGS: None . IMPRESSION: Cholelithiasis. Gallstones are mildly increased from prior study. No sonographic Mayer sign elicited by the technologist. No pericholecystic fluid. Gallbladder wall top-normal in size. Minor amount of gallbladder wall edema is not excluded. Correlation with exam is suggested.
[2018-08-12 11:24] VITALS: BP 100/70; PULSE 72; TEMP 98
== END 2018-08-12 11:22 | disposition home or self-care (01) ==
LOC: H.ER 06:12
DX: K80.20 Calculus of gallbladder without cholecystitis without obstruction (principal)
CPT/HCPCS: 76705; 80053; 85025; 96374; 99284; J1885; J7030

== ENCOUNTER 2018-09-11 10:44 | Emergency (ER) | payer SELFPAY ==
[2018-09-11 10:44] VITALS: BMI 26.5
[2018-09-11 10:47] VITALS: BP 127/76; PULSE 89; RESP 17; TEMP 98.9; O2SAT 98
--- NOTE | 2018-09-11 11:06 | ED PDOC ---
HPI: Psych/Substance Abuse Chief Complaint (Provider): Depressed History Per: Patient, Other (crisis who spoke with mobile crisis) History/Exam Limitations: no limitations Onset/Duration Of Symptoms: Days (today) Current Symptoms Are (Timing): Still Present Additional Complaint(s): Pt. depressed and not willing to talk much about what is going on. Unclear if suicidal or homicidal. Denies taking anything to hurt self. Mobile crisis picked up pt. who locked himself inside for a long time. Mobile crisis advised to put him on a 1-1. <Jossue Escalera M - Last Filed: 09/11/18 11:04> <Koki Rich - Last Filed: 09/11/18 17:12> Time Seen by Provider: 09/11/18 10:52 Chief Complaint (Nursing): Psychiatric Evaluation Past Medical History Reviewed: Nursing Documentation, Vital Signs Vital Signs: Last Vital Signs Temp 98.9 F 09/11/18 10:46 Pulse 89 09/11/18 10:46 Resp 17 09/11/18 10:46 BP 127/76 09/11/18 10:46 Pulse Ox 98 09/11/18 10:46 - Medical History PMH: Atrial Fibrillation, Gall Bladder Disease Denies: Kidney Stones, Chronic Kidney Disease - Family History Family History: States: Unknown Family Hx - Immunization History Hx Tetanus Toxoid Vaccination: No Hx Influenza Vaccination: No Hx Pneumococcal Vaccination: No <Jossue Escalera - Last Filed: 09/11/18 11:04> Reviewed: Historical Data, Nursing Documentation, Vital Signs Vital Signs: Last Vital Signs Temp 98.9 F 09/11/18 10:46 Pulse 89 09/11/18 10:46 Resp 17 09/11/18 10:46 BP 127/76 09/11/18 10:46 Pulse Ox 98 09/11/18 11:08 <Koki Rich - Last Filed: 09/11/18 17:12> - Home Medications Home Medications: Ambulatory Orders Medication Instructions Recorded RX: Amoxicillin 500 mg PO TID #21 tab 03/13/15 RX: Lidocaine 2% Viscous 15 ml MM AC #1 bottle 03/13/15 Cyclobenzaprine [Cyclobenzaprine 10 mg PO TID #20 tab 05/02/16 HCl] Oxycodone HCl/Acetaminophen 1 tab PO Q4 #12 tab 05/02/16 [Percocet 325 mg-5 mg] Ciprofloxacin/Dexamethasone 1 - 2 drop OD BID #1 bottle 12/20/16 [Ciprodex Otic] Ondansetron ODT [Zofran ODT] 4 mg PO Q8 PRN #12 odt 04/14/18 Naproxen [Naprosyn] 500 mg PO BID PRN #15 tablet 05/19/18 Ondansetron [Zofran Odt] 4 mg PO Q8H PRN #15 odt 05/19/18 Naproxen [Naprosyn] 500 mg PO BID PRN #15 tablet 05/31/18 Famotidine [Pepcid] 20 mg PO Q12 #20 tab 08/12/18 - Allergies Allergies/Adverse Reactions: Allergies Allergy/AdvReac Type Severity Reaction Status Date / Time No Known Allergies Allergy Verified 09/11/18 10:53 Review of Systems ROS Statement: Except As Marked, All Systems Reviewed And Found Negative Psych: Positive for: Depression <Jossue Escalera - Last Filed: 09/11/18 11:04> Physical Exam - Reviewed Nursing Documentation Reviewed: Yes Vital Signs Reviewed: Yes - Physical Exam Appears: Positive for: Non-toxic, No Acute Distress Head Exam: Positive for: ATRAUMATIC, NORMAL INSPECTION, NORMOCEPHALIC Skin: Positive for: Normal Color, Warm, DRY Eye Exam: Positive for: EOMI, Normal appearance, PERRL ENT: Positive for: Normal ENT Inspection Neck: Positive for: Normal, Painless ROM Cardiovascular/Chest: Positive for: Regular Rate, Rhythm Respiratory: Positive for: CNT, Normal Breath Sounds Extremity: Positive for: Normal ROM Neurologic/Psych: Positive for: Alert, Oriented <Jossue Escalera - Last Filed: 09/11/18 11:04> - ECG O2 Sat by Pulse Oximetry: 98 <Jossue Escalera - Last Filed: 09/11/18 11:04> Medical Decision Making Medical Decision Making: Clinical Impression: Depression, SI Plan: -Crisis evaluation -1:1 -Utox -Urine Dipstick -CBC -CMP -Serum alcohol 1130 Continuation of care per Hilario RUTH 1205 Per crisis evaluation, patient to be discharged per Dr Parker with the diagnosis of Adjustment Disorder. On exam, patient remains AAOx3, in no acute distress. Lungs clear to auscultation, cardiac RRR, repeat neuro exam shows no focal findings. Lab/diagnostic results d/w the patient in great detail. Diagnosis of adjustment disorder d/w the patient. Based on history, exam and diagnostic results, plan will be for discharge and follow up as arranged by crisis at clinic. Patient instructed to follow up with PMD/clinic/ referred provider in 1-2 days without fail. Return to the ED at any time for any new or worsening symptoms. Patient states that he fully agrees with and understands the discharge instructions. States that he agrees with the plan and disposition. Verbalized and repeated discharge instructions and plan. I have given the patient opportunity to ask any additional questions. <Koki Rich - Last Filed: 09/11/18 17:12> Disposition <Jossue Escalera - Last Filed: 09/11/18 11:04> - Patient ED Disposition Is Patient to be Admitted: No Counseled Patient/Family Regarding: Studies Performed, Diagnosis, Need For Fol lowup - Disposition Disposition: Routine/Home Disposition Time: 12:05 - POA Present On Arrival: None <Koki Rich - Last Filed: 09/11/18 17:12> - Clinical Impression Clinical Impression: Adjustment disorder - Disposition Referrals: [facility] [Outside] Condition: STABLE Additional Instructions: The emergency medical care you received today was directed at your acute symptoms. If you were prescribed any medication, please fill it and take as directed. It may take several days for your symptoms to resolve. Return to the ED if your symptoms worsen, do not improve, or if you have any other problems. Please contact your doctor in 2 days for re-evaluation and follow up/or call one of the physicians/clinics you have been referred to that are listed on the Patient Visit Information form that is included in your discharge packet. Bring any paperwork you were given at discharge with you along with any medications you are taking to your follow up visit. Our treatment cannot replace ongoing medical care by a primary care provider (PCP) outside of the emergency department. Instructions: Adjustment Disorder Forms: [employer] (Puerto Rican) Print Language: TRINIDADIAN
== END 2018-09-11 12:00 | disposition home or self-care (01) ==
LOC: H.ER 10:44
DX: F43.20 Adjustment disorder, unspecified (principal)

== ENCOUNTER 2018-10-13 07:03 | Emergency (ER) | payer SELFPAY ==
[2018-10-13 07:11] VITALS: O2SAT 100
[2018-10-13 07:12] VITALS: BMI 26.9
--- NOTE | 2018-10-13 07:38 | ED PDOC ---
HPI: Abdomen Time Seen by Provider: 10/13/18 07:05 Chief Complaint (Nursing): Abdominal Pain Chief Complaint (Provider): Abdominal Pain History Per: Patient History/Exam Limitations: no limitations Onset/Duration Of Symptoms: Hrs (x1) Current Symptoms Are (Timing): Still Present Location Of Pain/Discomfort: RUQ Quality Of Discomfort: "Pain" Associated Symptoms: denies: Fever, Nausea, Vomiting, Diarrhea, Constipation Additional Complaint(s): 43 year old female presents to the ED with constant, right upper quadrant pain onset one hour. Patient states pain is not radiating but feels like her past gall bladder pain. She has a follow up with the surgeon as outpatient. Patient denies fever, nausea, vomiting, diarrhea, constipation or any other medical complaints. Past Medical History Reviewed: Historical Data, Nursing Documentation, Vital Signs Vital Signs: Last Vital Signs Temp 98.0 F 10/13/18 07:10 Pulse 73 10/13/18 07:10 Resp 18 10/13/18 07:10 BP 107/65 10/13/18 07:10 Pulse Ox 100 10/13/18 07:10 - Medical History PMH: Atrial Fibrillation, Gall Bladder Disease Denies: Diabetes, Hepatitis, HIV, HTN (Pt denies), Kidney Stones, Chronic Kidney Disease, Seizures, Sexually Transmitted Disease - Family History Family History: States: Unknown Family Hx - Immunization History Hx Tetanus Toxoid Vaccination: No Hx Influenza Vaccination: No Hx Pneumococcal Vaccination: No - Home Medications Home Medications: Ambulatory Orders Medication Instructions Recorded Metronidazole [Flagyl] 500 mg PO TID #21 tablet 09/11/18 Ondansetron ODT [Zofran ODT] 1 odt PO BID PRN #6 odt 09/11/18 Acetaminophen with Codeine 1 tab PO Q6H PRN #10 tab 10/13/18 [Tylenol with Codeine No. 3 300 mg-30 mg] - Allergies Allergies/Adverse Reactions: Allergies Allergy/AdvReac Type Severity Reaction Status Date / Time No Known Allergies Allergy Verified 09/11/18 19:36 Review of Systems ROS Statement: Except As Marked, All Systems Reviewed And Found Negative Constitutional: Negative for: Fever Gastrointestinal: Positive for: Abdominal Pain. Negative for: Nausea, Vomiting, Diarrhea, Constipation Physical Exam - Reviewed Nursing Documentation Reviewed: Yes Vital Signs Reviewed: Yes - Physical Exam Appears: Positive for: Non-toxic, No Acute Distress Head Exam: Positive for: ATRAUMATIC, NORMOCEPHALIC Skin: Positive for: Normal Color, Warm, Dry Eye Exam: Positive for: Normal appearance, EOMI, PERRL Neck: Positive for: Normal Cardiovascular/Chest: Positive for: Regular Rate, Rhythm. Negative for: Murmur Respiratory: Positive for: Normal Breath Sounds. Negative for: Respiratory Distress Gastrointestinal/Abdominal: Positive for: Soft, Tenderness (right upper quadrant tenderness), Other (Positive [place] sign ) Extremity: Positive for: Normal ROM (upper and lower). Negative for: Pedal Edema, Deformity Neurologic/Psych: Positive for: Alert, Oriented (x3) - Laboratory Results Result Diagrams: 10/13/18 07:49 10/13/18 07:49 - ECG O2 Sat by Pulse Oximetry: 100 (RA) Pulse Ox Interpretation: Normal Medical Decision Making Medical Decision Making: Time: 731 Initial Impression: cholecystitis, cholelithiasis, gastritis Initial Plan: --EKG --CMP --Lipase --CBC with differentials --PTT --Prothrombin time --Morphine 2 m IV --UA --Abdomen limited (GB included) US Accession No. : [id number] Patient Name / ID : MARVIN FITZGERALD / [id number] Exam Date : 10/13/2018 10:09:05 ( Approved ) Study Comment : Sex / Age : F / 43Y Creator : Alton Burdick MD Dictator : Alton Burdick MD Rubber Cutter : Sidewalk Repairer : Alton Burdick MD Approver2 : Report Date : 10/13/2018 12:41:18 My Comment : Date of service: 10/13/2018 HISTORY: RUQ pain COMPARISON: None. TECHNIQUE: Sonographic evaluation of the abdomen. FINDINGS: LIVER: Measures cm. Heterogeneous echogenicity of the liver parenchyma. No mass. No intrahepatic bile duct dilatation. GALLBLADDER: Cholelithiasis. COMMON BILE DUCT: Measures mm. No stones. No dilatation. PANCREAS: Unremarkable as visualized. No mass. No ductal dilatation. RIGHT KIDNEY: Measures cm. Normal echogenicity. No calculus, mass, or hydronephrosis. LEFT KIDNEY: Measures cm. Normal echogenicity. No calculus, mass, or hydronephrosis. SPLEEN: Normal in size and contour. No mass. AORTA: No aneurysmal dilatation. IVC: Unremarkable. OTHER FINDINGS: None. IMPRESSION: Cholelithiasis. No wall thickening or pericholecystic fluid. Fatty liver. Scribe Attestation: Documented by Tiffanie Laboy, acting as a scribe for Julia Tariq MD Provider Scribe Attestation: All medical record entries made by the Scribe were at my direction and personally dictated by me. I have reviewed the chart and agree that the record accurately reflects my personal performance of the history, physical exam, medical decision making, and the department course for this patient. I have also personally directed, reviewed, and agree with the discharge instructions and disposition. Disposition - Clinical Impression Clinical Impression: Cholelithiasis - Disposition Referrals: Lee Segura MD [Staff Provider] - Condition: STABLE Prescriptions: Acetaminophen with Codeine [Tylenol with Codeine No. 3 300 mg-30 mg] 1 tab PO Q 6H PRN #10 tab PRN Reason: Pain, Severe (8-10) Instructions: Gallstones Forms: [employer] [place] (Japanese)
[2018-10-13 08:10] LABS: BASO # 0.1 K/uL (0.0-0.2); BASO % 0.4 % (0.0-2.0); EOS # 0.4 K/uL (0.0-0.7); EOS % 3.1 % (0.0-4.0); HEMOGLOBIN 12.8 g/dL (12.0-16.0); LYMPH # 1.6 K/uL (1.0-4.3); LYMPH % 13.5 % (20.0-40.0); MEAN CORPUSCULAR HEMOGLOBIN 31.4 pg (27.0-31.0); MEAN CORPUSCULAR HGB CONC 33.4 g/dL (33.0-37.0); MEAN PLATELET VOLUME 8.7 fl (7.2-11.7); MONO # 0.9 K/uL (0.0-0.8); MONO % 7.2 % (0.0-10.0); NEUT # 9.2 K/uL (1.8-7.0); NEUT % 75.8 % (50.0-75.0); RBC 4.07 Mil/uL (3.80-5.20); RED CELL DISTRIBUTION WIDTH 12.5 % (11.5-14.5); WHITE BLOOD COUNT 12.2 K/uL (4.8-10.8)
[2018-10-13 08:16] LABS: PROTHROMBIN TIME 11.7 Seconds (9.8-13.1)
[2018-10-13 08:17] LABS: ALB/GLOB RATIO 1.2 (1.0-2.1); ALT/SGPT 24 U/L (9-52); AST/SGOT 22 U/L (14-36); BLOOD UREA NITROGEN 15 mg/dl (7-17); CALCIUM 8.6 mg/dL (8.4-10.2); GFR NON-AFRICAN AMERICAN > 60; LIPASE 102 U/L (23-300)
[2018-10-13 08:19] LABS: PARTIAL THROMBOPLASTIN TIME 33.3 Seconds (25.6-37.1)
[2018-10-13 09:23] LABS: SQUAMOUS EPITHIAL 2 /hpf (0-5); URINE BILIRUBIN NEGATIVE (NEGATIVE); URINE BLOOD NEGATIVE (NEGATIVE); URINE CLARITY SLIGHTY-CLOUDY (Clear); URINE COLOR YELLOW (YELLOW); URINE GLUCOSE (UA) NEG (NEGATIVE); URINE LEUKOCYTE ESTERASE NEG Leu/uL (Negative); URINE PROTEIN NEGATIVE (NEGATIVE); URINE UROBILINOGEN 0.2-1.0 mg/dL (0.2-1.0)
[2018-10-13 12:02] VITALS: BP 112/79; PULSE 64; RESP 16; TEMP 97.6
--- NOTE | 2018-10-13 12:44 | US ---
Date of service: 10/13/2018 HISTORY: RUQ pain COMPARISON: None. TECHNIQUE: Sonographic evaluation of the abdomen. FINDINGS: LIVER: Measures cm. Heterogeneous echogenicity of the liver parenchyma. No mass. No intrahepatic bile duct dilatation. GALLBLADDER: Cholelithiasis. COMMON BILE DUCT: Measures mm. No stones. No dilatation. PANCREAS: Unremarkable as visualized. No mass. No ductal dilatation. RIGHT KIDNEY: Measures cm. Normal echogenicity. No calculus, mass, or hydronephrosis. LEFT KIDNEY: Measures cm. Normal echogenicity. No calculus, mass, or hydronephrosis. SPLEEN: Normal in size and contour. No mass. AORTA: No aneurysmal dilatation. IVC: Unremarkable. OTHER FINDINGS: None. IMPRESSION: Cholelithiasis. No wall thickening or pericholecystic fluid. Fatty liver.
== END 2018-10-13 12:56 | disposition home or self-care (01) ==
LOC: H.ER 07:03
DX: K80.10 Calculus of gallbladder with chronic cholecystitis without obstruction (principal); Z87.442 Personal history of urinary calculi
CPT/HCPCS: 76705; 80053; 81003; 83690; 85025; 85610; 85730; 99285; J2270

== ENCOUNTER 2019-03-05 10:50 | Emergency (ER) | payer SELFPAY ==
[2019-03-05 10:54] VITALS: BMI 26.7
[2019-03-05] MEDS ORDERED: Sodium Chloride 0.9% 1,000 ML IV STA (11:51)
[2019-03-05 12:53] LABS: BASO % 0.5 % (0.0-2.0); EOS # 0.2 K/uL (0.0-0.7); EOS % 2.1 % (0.0-4.0); HEMOGLOBIN 12.2 g/dL (12.0-16.0); LYMPH # 0.7 K/uL (1.0-4.3); LYMPH % 9.1 % (20.0-40.0); MEAN CELL VOLUME 91.8 fl (81.0-99.0); MEAN CORPUSCULAR HEMOGLOBIN 30.8 pg (27.0-31.0); MEAN CORPUSCULAR HGB CONC 33.5 g/dL (33.0-37.0); MEAN PLATELET VOLUME 8.6 fl (7.2-11.7); MONO # 0.3 K/uL (0.0-0.8); MONO % 4.5 % (0.0-10.0); NEUT # 6.3 K/uL (1.8-7.0); NEUT % 83.8 % (50.0-75.0); PLATELET COUNT 238 K/uL (130-400); RBC 3.97 Mil/uL (3.80-5.20); RED CELL DISTRIBUTION WIDTH 12.2 % (11.5-14.5); WHITE BLOOD COUNT 7.5 K/uL (4.8-10.8)
[2019-03-05 13:02] LABS: ALB/GLOB RATIO 1.5 (1.0-2.1); ALT/SGPT 25 U/L (9-52); AST/SGOT 20 U/L (14-36); BLOOD UREA NITROGEN 12 mg/dl (7-17); GFR NON-AFRICAN AMERICAN > 60; LIPASE 76 U/L (23-300)
--- NOTE | 2019-03-05 13:16 | ED PDOC ---
HPI: Abdomen Time Seen by Provider: 03/05/19 11:07 Chief Complaint (Nursing): Abdominal Pain Chief Complaint (Provider): Abdominal pain History Per: Patient History/Exam Limitations: no limitations Onset/Duration Of Symptoms: Hrs Current Symptoms Are (Timing): Still Present Location Of Pain/Discomfort: RUQ Quality Of Discomfort: Sharp Additional History Per: Patient Additional Complaint(s): 43yo female (transitioning from male to female), comes to ER for evaluation of sharp right upper quadrant abdominal pain, which woke her up from her sleep this morning. Patient has a history of gallstones, and denies any prior abdominal surgeries. There is questionable compliance with surgical follow up. She currently states the pain is different today as it is associated with weakness, dizziness and nausea. She states in prior episodes, she has never had weakness or dizziness. She states she did not eat anything today. Otherwise, no vomiting, diarrhea, chest pain, or shortness of breath. PMD: [place] Past Medical History Reviewed: Historical Data, Nursing Documentation, Vital Signs Vital Signs: Last Vital Signs Temp 97.8 F 03/05/19 10:52 Pulse 69 03/05/19 10:52 Resp 18 03/05/19 10:52 BP 106/69 03/05/19 10:52 Pulse Ox 100 03/05/19 10:52 Primary Care Provider: Non [facility] Provider, - Medical History PMH: Atrial Fibrillation, Gall Bladder Disease Denies: Diabetes, Hepatitis, HIV, HTN (Pt denies), Kidney Stones, Chronic Kidney Disease, Seizures, Sexually Transmitted Disease - Surgical History Surgical History: No Surg Hx Denies: Cholecystectomy - Family History Family History: States: Unknown Family Hx - Immunization History Hx Tetanus Toxoid Vaccination: No Hx Influenza Vaccination: No Hx Pneumococcal Vaccination: No - Home Medications Home Medications: Ambulatory Orders Medication Instructions Recorded Metronidazole [Flagyl] 500 mg PO TID #21 tablet 09/11/18 Ondansetron ODT [Zofran ODT] 1 odt PO BID PRN #6 odt 09/11/18 Acetaminophen with Codeine 1 tab PO Q6H PRN #10 tab 10/13/18 [Tylenol with Codeine No. 3 300 mg-30 mg] oxyCODONE/Acetaminophen [Percocet 1 ea PO Q6 #20 tab 03/05/19 5/325 mg Tab] - Allergies Allergies/Adverse Reactions: Allergies Allergy/AdvReac Type Severity Reaction Status Date / Time No Known Allergies Allergy Verified 09/11/18 19:36 Review of Systems ROS Statement: Except As Marked, All Systems Reviewed And Found Negative Constitutional: Positive for: Weakness. Negative for: Fever, Chills Cardiovascular: Negative for: Chest Pain Gastrointestinal: Positive for: Abdominal Pain Neurological: Positive for: Dizziness Physical Exam - Reviewed Nursing Documentation Reviewed: Yes Vital Signs Reviewed: Yes - Physical Exam Appears: Positive for: Non-toxic Head Exam: Positive for: ATRAUMATIC, NORMAL INSPECTION, NORMOCEPHALIC Skin: Positive for: Normal Color Eye Exam: Positive for: Normal appearance, EOMI, PERRL Neck: Positive for: Supple Cardiovascular/Chest: Positive for: Regular Rate, Rhythm. Negative for: Tachycardia Respiratory: Positive for: Normal Breath Sounds. Negative for: Respiratory Distress Gastrointestinal/Abdominal: Positive for: Soft, Tenderness (right upper quadrant tenderness, (+) amyer's sign). Negative for: Mass, Guarding, Rebound Back: Positive for: Normal Inspection Extremity: Positive for: Normal ROM Neurological/Psych: Positive for: Awake, Alert, Normal Tone, Oriented (x 3) - Laboratory Results Result Diagrams: 03/05/19 12:35 03/05/19 12:35 Lab Results: Total Bilirubin 0.4 mg/dl (0.2-1.3) 03/05/19 12:35 AST 20 U/L (14-36) 03/05/19 12:35 ALT 25 U/L (9-52) 03/05/19 12:35 Alkaline Phosphatase 78 U/L (38-126) 03/05/19 12:35 Total Protein 6.6 G/DL (6.3-8.2) 03/05/19 12:35 Albumin 4.0 g/dL (3.5-5.0) 03/05/19 12:35 Globulin 2.6 gm/dL (2.2-3.9) 03/05/19 12:35 Albumin/Globulin Ratio 1.5 (1.0-2.1) 03/05/19 12:35 Lipase 76 U/L (23-300) 03/05/19 12:35 - ECG O2 Sat by Pulse Oximetry: 100 (RA) Pulse Ox Interpretation: Normal Medical Decision Making Medical Decision Making: Exacerbation of right upper quadrant pain, with known history of gallstones and cholecystitis Labs, toradol and reglan given RUQ US ordered 1437 RUQ US FINDINGS: LIVER: Measures 17.7 cm in length. Patent portal and hepatic venous systems. Hepatopedal blood flow. Fatty infiltration manifest ultrasonographically as increased echogenicity of the liver parenchyma. No mass. No intrahepatic bile duct dilatation. GALLBLADDER: Cholelithiasis. Negative study for gallbladder wall thickening, pericholecystic fluid, sonographic Mayer's sign. COMMON BILE DUCT: Measures 3.1 mm. No stones. No dilatation. PANCREAS: Unremarkable as visualized. No mass. No ductal dilatation. RIGHT KIDNEY: Measures 10.3 x 5.4 cm in length. Normal echogenicity. No calculus, mass, or hydronephrosis. AORTA: No aneurysmal dilatation. IVC: Unremarkable. OTHER FINDINGS: None . IMPRESSION: Cholelithiasis. No sonographic evidence of acute cholecystitis. No significant interval change compared to the prior examination(s). 1504 Patient informed of US findings, instructed on need for strict follow up Stable for discharge home. ScribeAttestation: Documented byConnie Mosqueda, acting as a scribe for Koki Diane MD. Provider ScribeAttestation: All medical record entries made by the Scribe were at my direction and personally dictated by me. I have reviewed the chart and agree that the record accurately reflects my personal performance of the history, physical exam, medical decision making, and the department course for this patient. I have also personally directed, reviewed, and agree with the discharge instructions and disposition. Disposition - Clinical Impression Clinical Impression: Gallstones, Abdominal discomfort - Disposition Referrals: Lee Segura MD [Staff Provider] - Disposition: Routine/Home Disposition Time: 15:05 Condition: IMPROVED Additional Instructions: Take Motrin for moderate pain. Take Percocet only for severe pain. Follow up with the general surgeon for routine care of gall stones and the potential need for surgical correction. Prescriptions: oxyCODONE/Acetaminophen [Percocet 5/325 mg Tab] 1 ea PO Q6 #20 tab Instructions: Gallstones, Acute Abdomen (Belly Pain) Forms: [employer] (Yakut) Print Language: GUAMANIAN
--- NOTE | 2019-03-05 13:28 | US ---
Date of service: 03/05/2019 HISTORY: RUQ pain and nausea COMPARISON: 10/13/2018. Abdominal ultrasound TECHNIQUE: Sonographic evaluation of the right upper quadrant of the abdomen. FINDINGS: LIVER: Measures 17.7 cm in length. Patent portal and hepatic venous systems. Hepatopedal blood flow. Fatty infiltration manifest ultrasonographically as increased echogenicity of the liver parenchyma. No mass. No intrahepatic bile duct dilatation. GALLBLADDER: Cholelithiasis. Negative study for gallbladder wall thickening, pericholecystic fluid, sonographic Mayer's sign. COMMON BILE DUCT: Measures 3.1 mm. No stones. No dilatation. PANCREAS: Unremarkable as visualized. No mass. No ductal dilatation. RIGHT KIDNEY: Measures 10.3 x 5.4 cm in length. Normal echogenicity. No calculus, mass, or hydronephrosis. AORTA: No aneurysmal dilatation. IVC: Unremarkable. OTHER FINDINGS: None . IMPRESSION: Cholelithiasis. No sonographic evidence of acute cholecystitis. No significant interval change compared to the prior examination(s).
[2019-03-05 14:18] LABS: BASOPHIL 1 % (0-2); EOSINOPHIL 2 % (0-7); LYMPHOCYTE 8 % (20-50); MONOCYTE 1 % (0-10); NEUTROPHIL 88 % (42-75); PLATELET ESTIMATE NORMAL (NORMAL); TOTAL CELLS COUNTED 100
[2019-03-05 14:19] LABS: OVALOCYTES SLIGHT
[2019-03-05 15:55] VITALS: BP 102/67; PULSE 71; RESP 21; TEMP 98.4; O2SAT 98
== END 2019-03-05 14:48 | disposition home or self-care (01) ==
LOC: H.ER 10:50
DX: K80.20 Calculus of gallbladder without cholecystitis without obstruction (principal); Z87.442 Personal history of urinary calculi; R10.9 Unspecified abdominal pain
CPT/HCPCS: 76705; 80053; 83690; 85025; 96374; 96375; 99285; J1885; J2765; J7030

== ENCOUNTER 2019-03-12 10:48 | Emergency (ER) | payer SELFPAY ==
[2019-03-12 11:12] VITALS: RESP 18; O2SAT 98; BMI 28.2
[2019-03-12] MEDS: Sodium Chloride 0.9% 1,000 ML IV STA (12:22)
[2019-03-12 12:36] LABS: BASO # 0.1 K/uL (0.0-0.2); BASO % 0.6 % (0.0-2.0); EOS # 0.3 K/uL (0.0-0.7); EOS % 3.3 % (0.0-4.0); HEMOGLOBIN 13.2 g/dL (12.0-16.0); LYMPH % 10.5 % (20.0-40.0); MEAN CELL VOLUME 91.7 fl (81.0-99.0); MEAN CORPUSCULAR HEMOGLOBIN 31.1 pg (27.0-31.0); MEAN CORPUSCULAR HGB CONC 33.9 g/dL (33.0-37.0); MEAN PLATELET VOLUME 8.8 fl (7.2-11.7); MONO # 0.5 K/uL (0.0-0.8); MONO % 5.5 % (0.0-10.0); NEUT # 7.7 K/uL (1.8-7.0); NEUT % 80.1 % (50.0-75.0); RBC 4.25 Mil/uL (3.80-5.20); RED CELL DISTRIBUTION WIDTH 12.2 % (11.5-14.5); WHITE BLOOD COUNT 9.7 K/uL (4.8-10.8)
[2019-03-12 12:41] LABS: SQUAMOUS EPITHIAL 1 /hpf (0-5); URINE BACTERIA RARE (<OCC); URINE BILIRUBIN NEGATIVE (NEGATIVE); URINE BLOOD NEGATIVE (NEGATIVE); URINE CLARITY SLIGHTY-CLOUDY (Clear); URINE COLOR YELLOW (YELLOW); URINE GLUCOSE (UA) NEG (NEGATIVE); URINE LEUKOCYTE ESTERASE NEG Leu/uL (Negative); URINE PROTEIN 30 mg/dL (NEGATIVE); URINE UROBILINOGEN 0.2-1.0 mg/dL (0.2-1.0)
[2019-03-12 12:44] LABS: INR 0.9; PROTHROMBIN TIME 10.7 Seconds (9.8-13.1)
[2019-03-12 12:45] LABS: ALB/GLOB RATIO 1.5 (1.0-2.1); ALBUMIN 4.5 g/dL (3.5-5.0); BLOOD UREA NITROGEN 14 mg/dl (7-17); CALCIUM 8.9 mg/dL (8.4-10.2); GFR NON-AFRICAN AMERICAN > 60; LIPASE 93 U/L (23-300)
[2019-03-12 12:47] LABS: PARTIAL THROMBOPLASTIN TIME 28.4 Seconds (25.6-37.1)
[2019-03-12 12:51] LABS: ALT/SGPT 22 U/L (9-52); AST/SGOT 24 U/L (14-36)
--- NOTE | 2019-03-12 13:30 | US ---
Date of service: 03/12/2019 HISTORY: RUQ pain COMPARISON: None. TECHNIQUE: Sonographic evaluation of the right upper quadrant of the abdomen. FINDINGS: LIVER: Measures 18.0 cm in length. There is diffuse increased echogenicity of the liver parenchyma. No mass. No intrahepatic bile duct dilatation. GALLBLADDER: The gallbladder is distended. No wall thickening or pericholecystic fluid. There are multiple gallstones. There is a 1.4 x 1.5 x 0.8 cm stone in the neck of the gallbladder. The sonographic Mayer's sign is negative. COMMON BILE DUCT: Measures 3.7 mm. No stones. No dilatation. PANCREAS: Unremarkable as visualized. No mass. No ductal dilatation. RIGHT KIDNEY: Measures 10.9 cm in length. Normal echogenicity. No calculus, mass, or hydronephrosis. AORTA: No aneurysmal dilatation. IVC: Unremarkable. OTHER FINDINGS: None . IMPRESSION: 1. Cholelithiasis. 1.5 cm stone in the region of the neck of the gallbladder. Gallbladder distention without wall thickening or pericholecystic fluid. The sonographic Mayer's sign is negative. 2. Mild hepatomegaly and fatty liver.
--- NOTE | 2019-03-12 13:45 | ED PDOC ---
HPI: Abdomen Time Seen by Provider: 03/12/19 11:43 Chief Complaint (Nursing): Abdominal Pain History Per: Patient Additional Complaint(s): Pt. states yesterday at approximately 2100 today pt. developed RUQ radiating to epigastrum. Pain began after eating a meal of rice, beans, and chicken and has since progressively worsened. Reports last month she was seen here for g allstones. Pt. was prescribed Percocet which she did not taken. Last BM was today and was normal. Denies N/V, chest pain, SOB, fever, chills, melena, hematochezia, BRBPR. Past Medical History Reviewed: Historical Data, Nursing Documentation, Vital Signs Vital Signs: Last Vital Signs Temp 97.9 F 03/12/19 11:11 Pulse 65 03/12/19 11:11 Resp 18 03/12/19 11:11 BP 103/70 03/12/19 11:11 Pulse Ox 98 03/12/19 11:11 Primary Care Provider: FAMILY PROVIDER,NO - Medical History PMH: Atrial Fibrillation (no longer on anticoagulants), Gall Bladder Disease Denies: Diabetes, Hepatitis, HIV, HTN (Pt denies), Kidney Stones, Chronic Kidney Disease, Seizures, Sexually Transmitted Disease - Surgical History Surgical History: Denies: Cholecystectomy - Family History Family History: States: No Known Family Hx - Immunization History Hx Tetanus Toxoid Vaccination: No Hx Influenza Vaccination: No Hx Pneumococcal Vaccination: No - Home Medications Home Medications: Ambulatory Orders Medication Instructions Recorded Metronidazole [Flagyl] 500 mg PO TID #21 tablet 09/11/18 Ondansetron ODT [Zofran ODT] 1 odt PO BID PRN #6 odt 09/11/18 Acetaminophen with Codeine 1 tab PO Q6H PRN #10 tab 10/13/18 [Tylenol with Codeine No. 3 300 mg-30 mg] oxyCODONE/Acetaminophen [Percocet 1 ea PO Q6 #20 tab 03/05/19 5/325 mg Tab] Ibuprofen [Motrin Tab] 800 mg PO Q6 PRN #12 tab 03/12/19 Ondansetron ODT [Zofran ODT] 4 mg PO TID #10 odt 03/12/19 - Allergies Allergies/Adverse Reactions: Allergies Allergy/AdvReac Type Severity Reaction Status Date / Time No Known Allergies Allergy Verified 03/12/19 11:11 Review of Systems ROS Statement: Except As Marked, All Systems Reviewed And Found Negative Gastrointestinal: Positive for: Abdominal Pain Physical Exam - Physical Exam Appears: Positive for: Well, In Acute Distress (moderate painful distress) Skin: Positive for: Normal Color, Warm. Negative for: Rash Eye Exam: Positive for: Normal appearance. Negative for: Conjunctival injection, Scleral icterus Cardiovascular/Chest: Positive for: Regular Rate, Rhythm Respiratory: Positive for: Normal Breath Sounds. Negative for: Respiratory Distress Gastrointestinal/Abdominal: Positive for: Soft, Tenderness (mild RUQ tenderness), Other (negative Murpy's sign). Negative for: Guarding Back: Negative for: L CVA Tenderness, R CVA Tenderness Neurological/Psych: Positive for: Awake, Oriented (x3) - Laboratory Results Result Diagrams: 03/12/19 12:33 03/12/19 12:33 Lab Results: PT 10.7 Seconds (9.8-13.1) 03/12/19 12:33 INR 0.9 03/12/19 12:33 APTT 28.4 Seconds (25.6-37.1) 03/12/19 12:33 Total Bilirubin 0.5 mg/dl (0.2-1.3) 03/12/19 12:33 AST 24 U/L (14-36) 03/12/19 12:33 ALT 22 U/L (9-52) 03/12/19 12:33 Alkaline Phosphatase 82 U/L (38-126) 03/12/19 12:33 Total Protein 7.4 G/DL (6.3-8.2) 03/12/19 12:33 Albumin 4.5 g/dL (3.5-5.0) 03/12/19 12:33 Globulin 2.9 gm/dL (2.2-3.9) 03/12/19 12:33 Albumin/Globulin Ratio 1.5 (1.0-2.1) 03/12/19 12:33 Lipase 93 U/L (23-300) 03/12/19 12:33 Urine Color Yellow (YELLOW) 03/12/19 12:33 Urine Clarity Slighty-cloudy (Clear) 03/12/19 12:33 Urine pH 8.0 (5.0-8.0) 03/12/19 12:33 Ur Specific [place] 1.027 (1.003-1.030) 03/12/19 12:33 Urine Protein 30 mg/dL (NEGATIVE) 03/12/19 12:33 Urine Glucose (UA) Neg mg/dL (NEGATIVE) 03/12/19 12:33 Urine Ketones Negative mg/dL (NEGATIVE) 03/12/19 12:33 Urine Blood Negative (NEGATIVE) 03/12/19 12:33 Urine Nitrate Negative (NEGATIVE) 03/12/19 12:33 Urine Bilirubin Negative (NEGATIVE) 03/12/19 12:33 Urine Urobilinogen 0.2-1.0 mg/dL (0.2-1.0) 03/12/19 12:33 Ur Leukocyte Esterase Neg Yuki/uL (Negative) 03/12/19 12:33 Urine RBC (Auto) 3 /hpf (0-3) 03/12/19 12:33 Urine Microscopic WBC < 1 /hpf (0-5) 03/12/19 12:33 Ur Squamous Epith Cells 1 /hpf (0-5) 03/12/19 12:33 Urine Bacteria Rare (<OCC) 03/12/19 12:33 - ECG O2 Sat by Pulse Oximetry: 98 - Progress ED Course And Treament: Labs, toradol 30mg IV, zofran 4mg IV, IV NS Bolus x1, abd US ordered. 1327 Abd US: 1. Cholelithiasis. 1.5 cm stone in the region of the neck of the gallbladder. Gallbladder distention without wall thickening or pericholecystic fluid. The sonographic Mayer's sign is negative. 2. Mild hepatomegaly and fatty liver. On re-evaluation, pt. reports complete relief of pain. Pt. happy and smiling. Informed of all results. Low fat diet encouraged. Advised to f/u with [facility] for further evaluation but is to return to ED immediately if symptoms worsen. Case d/w Dr. Diane who agrees with plan and care. Disposition - Clinical Impression Clinical Impression: Gallstones - Patient ED Disposition Is Patient to be Admitted: No - Disposition Referrals: [facility] [Outside] Ford Jeter MD [Staff Provider] - Disposition: Routine/Home Disposition Time: 13:30 Condition: IMPROVED Additional Instructions: FOLLOW UP WITH [facility] OR DR. JETER FOR FURTHER EVALUATION RETURN TO ED IMMEDIATELY IF SYMPTOMS WORSEN. LIA WONG, thank you for letting us take care of you today. Your provider was Koki Diane MD and you were treated for ABD PAIN. The emergency medical care you received today was directed at your acute symptoms. If you were prescribed any medication, please fill it and take as directed. It may take several days for your symptoms to resolve. Return to the Emergency Department if your symptoms worsen, do not improve, or if you have any other problems. Please contact your doctor or call one of the physicians/clinics you have been referred to that are listed on the Patient Visit Information form that is included in your discharge packet. Bring any paperwork you were given at discharge with you along with any medications you are taking to your follow up visit. Our treatment cannot replace ongoing medical care by a primary care provider outside of the emergency department. Thank you for allowing the [facility] team to be part of your care today. If you had an X-Ray or CT scan: A Radiologist will review the ED reading if any change in treatment is needed we will contact you. If you had a blood, urine, or wound culture: It will take several days for the results, if any change in treatment is needed we will contact you. If you had an STI test: It will take 48 hours for the results. Please call after 1 week if you have not heard back. Prescriptions: Ibuprofen [Motrin Tab] 800 mg PO Q6 PRN #12 tab PRN Reason: Pain Ondansetron ODT [Zofran ODT] 4 mg PO TID #10 odt Instructions: Gallstones (DC) Forms: [employer] (Slovenian) Print Language: SPANISH
[2019-03-12 14:26] VITALS: BP 107/62; PULSE 85; TEMP 98.1
== END 2019-03-12 14:24 | disposition home or self-care (01) ==
LOC: H.ER 10:48
DX: K80.20 Calculus of gallbladder without cholecystitis without obstruction (principal)
CPT/HCPCS: 76705; 80053; 81003; 81025; 83690; 85025; 85610; 85730; 96374; 96375; 99285; J1885; J2405; J7030

== ENCOUNTER 2019-03-15 10:56 | Emergency (ER) | payer SELFPAY ==
[2019-03-15 11:24] VITALS: BMI 28.0
[2019-03-15] MEDS ORDERED: Sodium Chloride 0.9% 1,000 ML IV STA (11:33)
--- NOTE | 2019-03-15 11:40 | ED PDOC ---
HPI: Abdomen Time Seen by Provider: 03/15/19 11:19 Chief Complaint (Nursing): Abdominal Pain History Per: Patient Additional Complaint(s): Pt. states this morning he woke up with R flank pain radiating to his RUQ. He attempted to take Motrin to help with the pain but after taking it with a glass of milk pain became worsen. Denies chest pain, SOB, hematuria, dysuria, fever, chills, vomiting, melena, hematochezia, BRBPR. Past Medical History Reviewed: Historical Data, Nursing Documentation, Vital Signs Vital Signs: Last Vital Signs Temp 97.3 F L 03/15/19 11:21 Pulse 59 L 03/15/19 11:21 Resp BP 107/72 03/15/19 11:21 Pulse Ox 98 03/15/19 11:21 Primary Care Provider: Doctor,Daya - Medical History PMH: Atrial Fibrillation (no longer on anticoagulants), Gall Bladder Disease Denies: Diabetes, Hepatitis, HIV, HTN (Pt denies), Kidney Stones, Chronic Kidney Disease, Seizures, Sexually Transmitted Disease - Surgical History Surgical History: Denies: Cholecystectomy - Family History Family History: States: No Known Family Hx - Immunization History Hx Tetanus Toxoid Vaccination: No Hx Influenza Vaccination: No Hx Pneumococcal Vaccination: No - Home Medications Home Medications: Ambulatory Orders Medication Instructions Recorded Metronidazole [Flagyl] 500 mg PO TID #21 tablet 09/11/18 Ondansetron ODT [Zofran ODT] 1 odt PO BID PRN #6 odt 09/11/18 Acetaminophen with Codeine 1 tab PO Q6H PRN #10 tab 10/13/18 [Tylenol with Codeine No. 3 300 mg-30 mg] oxyCODONE/Acetaminophen [Percocet 1 ea PO Q6 #20 tab 03/05/19 5/325 mg Tab] Ibuprofen [Motrin Tab] 800 mg PO Q6 PRN #12 tab 03/12/19 Ondansetron ODT [Zofran ODT] 4 mg PO TID #10 odt 03/12/19 Famotidine [Pepcid] 20 mg PO DAILY PRN #10 tab 03/15/19 - Allergies Allergies/Adverse Reactions: Allergies Allergy/AdvReac Type Severity Reaction Status Date / Time No Known Allergies Allergy Verified 03/15/19 11:21 Review of Systems ROS Statement: Except As Marked, All Systems Reviewed And Found Negative Gastrointestinal: Positive for: Nausea, Abdominal Pain Musculoskeletal: Positive for: Back Pain Physical Exam - Physical Exam Appears: Positive for: Well, In Acute Distress (mild painful distress) Skin: Positive for: Normal Color, Warm. Negative for: Rash Eye Exam: Positive for: Normal appearance. Negative for: Scleral icterus Gastrointestinal/Abdominal: Positive for: Soft, Tenderness (RUQ tenderness; negative Mayer's sign). Negative for: Organomegaly, Distended, Guarding, Rebound Back: Positive for: Normal Inspection. Negative for: L CVA Tenderness, R CVA Tenderness Neurological/Psych: Positive for: Awake, Alert, Oriented (x3) - Laboratory Results Result Diagrams: 03/15/19 12:00 03/15/19 12:00 - ECG O2 Sat by Pulse Oximetry: 98 - Progress ED Course And Treament: Labs, toradol 30mg IV, IV NS bolus x 1, pepcid 20mg IV, zofran 4mg IV ordered. On re-evaluation, pt. reports good relief of pain. Disposition - Clinical Impression Clinical Impression: Gallstones - Patient ED Disposition Is Patient to be Admitted: No - Disposition Referrals: [facility] [Outside] Disposition: Routine/Home Disposition Time: 12:30 Condition: IMPROVED Additional Instructions: FOLLOW UP WITH SURGERY CLINIC FOR FURTHER EVALUATION RETURN TO ED IMMEDIATELY IF SYMPTOMS WORSEN LIA WONG, thank you for letting us take care of you today. Your provider was Koki Diane MD and you were treated for ABD PAIN, BACK PAIN. The emergency medical care you received today was directed at your acute symptoms. If you were prescribed any medication, please fill it and take as directed. It may take several days for your symptoms to resolve. Return to the Emergency Department if your symptoms worsen, do not improve, or if you have any other problems. Please contact your doctor or call one of the physicians/clinics you have been referred to that are listed on the Patient Visit Information form that is included in your discharge packet. Bring any paperwork you were given at discharge with you along with any medications you are taking to your follow up visit. Our treatment cannot replace ongoing medical care by a primary care provider outside of the emergency department. Thank you for allowing the [facility] team to be part of your care today. If you had an X-Ray or CT scan: A Radiologist will review the ED reading if any change in treatment is needed we will contact you. If you had a blood, urine, or wound culture: It will take several days for the results, if any change in treatment is needed we will contact you. If you had an STI test: It will take 48 hours for the results. Please call after 1 week if you have not heard back. Prescriptions: Famotidine [Pepcid] 20 mg PO DAILY PRN #10 tab PRN Reason: Dyspepsia Instructions: Gallstones (DC) Forms: [employer] ([place]se) Print Language: MARSHALLESE
[2019-03-15 12:07] LABS: BASO % 0.5 % (0.0-2.0); EOS # 0.4 K/uL (0.0-0.7); EOS % 4.4 % (0.0-4.0); HEMOGLOBIN 12.4 g/dL (12.0-16.0); LYMPH # 1.4 K/uL (1.0-4.3); LYMPH % 16.5 % (20.0-40.0); MEAN CELL VOLUME 92.1 fl (81.0-99.0); MEAN CORPUSCULAR HEMOGLOBIN 30.9 pg (27.0-31.0); MEAN CORPUSCULAR HGB CONC 33.5 g/dL (33.0-37.0); MEAN PLATELET VOLUME 8.6 fl (7.2-11.7); MONO # 0.6 K/uL (0.0-0.8); MONO % 7.4 % (0.0-10.0); NEUT # 5.9 K/uL (1.8-7.0); NEUT % 71.2 % (50.0-75.0); NRBC % 0.1 % (0.0-0.0); RBC 4.02 Mil/uL (3.80-5.20); RED CELL DISTRIBUTION WIDTH 12.4 % (11.5-14.5); WHITE BLOOD COUNT 8.3 K/uL (4.8-10.8)
[2019-03-15 12:31] LABS: ALB/GLOB RATIO 1.5 (1.0-2.1); ALBUMIN 4.1 g/dL (3.5-5.0); ALT/SGPT 26 U/L (9-52); AST/SGOT 20 U/L (14-36); BLOOD UREA NITROGEN 11 mg/dl (7-17); CALCIUM 8.7 mg/dL (8.4-10.2); GFR NON-AFRICAN AMERICAN > 60; LIPASE 85 U/L (23-300)
[2019-03-15 14:24] VITALS: BP 101/64; PULSE 62; RESP 18; TEMP 97.9
[2019-03-15 19:36] VITALS: O2SAT 98
== END 2019-03-15 14:30 | disposition home or self-care (01) ==
LOC: H.ER 10:56
DX: K80.20 Calculus of gallbladder without cholecystitis without obstruction (principal); Z87.442 Personal history of urinary calculi
CPT/HCPCS: 80053; 83690; 85025; 96361; 96374; 96375; 99283; J1885; J2405; J7030